=== PATIENT | male | born 1965 | race Two or more races ===

== ENCOUNTER 2024-10-07 14:40 | Emergency (ER) | payer MEDICAID, SELFPAY ==
[2024-10-07 14:45] VITALS: BMI 53.1
--- NOTE | 2024-10-07 14:56 | PC.CC ---
[facility] responded to code blue. It was reported by Heidy Adkins that patient was found down by [employer] and were unsure how long the patient had been down for. ASW informed security that if family presented themselves to notify ASW.
--- NOTE | 2024-10-07 15:02 | EDNOTE_ITS ---
ED CPR RME/HPI General Chief Complaint: Cardiac Arrest/CPR Stated Complaint: CODE Time Seen by Provider: 10/07/24 14:49 Arrival date/time: 10/07/24 14:40 RME / HPI RME / HPI narrative: This section includes all my notes and documentations, including HPI, PE, and ED course.? Winston Camarena MD HPI: Initial report received from EMS. 59 year old male presents to the ED BIBA from home as a code blue. Per medics report, patient was found down outside by a bulk delivery driver who initiated CPR. Time down is unknown. On their arrival patient was in ventricular tachycardia and 1 shock was administered. Patient was given a total of 7 epinephrine en route to ED, last administered 2 minutes prior to arrival. Prehospital BS 42 and given 250cc of D10, repeat BS 82. 1310 (after patient ): I spoke with patients and daughter. reports patient woke up, ate breakfast this morning and appeared okay. However, does reports patient had complained of feeling globally weak yesterday with low blood pressure levels. Daughter states the patient went outside and apparently he drove home. But collapsed after getting out of the car before getting inside. garbage truck driver knocked on her door to let her know what happened. He initiated CPR and EMS was called. ROS: Unable to obtain from the patient due to current clinical condition. Physical Exam: General:?Patient arrived with no signs of life, in cardiac-respiratory arrest with CPR in progress, bagged through i-gel via bag valve mask Eyes: Pupils fixed and dilated. ENT:? No signs of trauma. Heart:?No cardiac activity. Lungs:? No spontaneous respiration. Abdomen:? Soft.?? Skin:? Cool and cyanotic. Neuro: GCS is 3. ACLS protocol followed, including 2-minute chest compressions. At 3 PM, made decision to abort our resuscitation efforts with no objections from the staff. Patient at 3 PM, rest in peace Mr. Arizmendi. Winston Camarena MD ED Exam Narrative Physical exam: As noted in HPI Course Quality Measures none Orders Category Date Time Status Intubation NOW Care 10/07/24 15:05 Completed Procedures -ED Intubation Time out performed: Yes (Intubation performed emergently ) sedative: none Laryngoscope: Nickolas Assist Device Used: other (GlideScope) ET Tube Size: 8 ET Tube Uncuffed: Yes Tube Secured Depth (cm): 23 Tube Secured Location: lips Tube Placement Confirmation: visualized tube passing through cords, equal breath sounds bilaterally, no breath sounds over epigastrium and confirmation by capnometry Patient Tolerated Procedure: no complications Intubation Complications: none Cardiac Arrest / CPR MDM Narrative MDM Narrative:: Carlene Parekh am scribing for and in the presence of Dr. Camarena. Patient data External records reviewed:: EMS form Clinical information provided by:: EMS and family Social determinants that could affect healthcare access:: none Patient has the following chronic illnesses:: Prostate cancer How is presenting disease/condition affected by chronic disease/condition?: exacerbated by Evaluation data The following diagnostics were reviewed and interpreted by me:: other (specify) (No diagnostic testing performed ) Lab and/or radiology exams considered but not ordered:: None Interpretation Summary: No diagnostic testing performed. Medications / Prescriptions Medications or Prescriptions considered but not ordered:: None Medication administrations:: Patient given Epinephrine, sodium bicarbonate, Calcium Consultations Consultation(s) initiated? (list below): No Diagnosis Cardiac arrest differential diagnosis: acute massive pulmonary embolism, acute respiratory failure, acute myocardial infarction, cardiac arrest and sudden cardiac Most likely diagnosis given after review of the tests above:: Cardiac arrest Admission Indicated Admission indicated?: not indicated Explain why admission is indicated or not indicated:: Patient Admission Request Was there a request for admission?: No Disposition Plan Disposition Plan: other (specify) ( ) Discharge Plan Plan Patient Disposition: Problem List Clinical Impression: Cardiac arrest Patient/Caregiver Discharge Instructions Print Language: Icelandic
--- NOTE | 2024-10-07 15:16 | ESOP_ITS ---
Procedures Procedure Date / Time 10/07/24 1500 Procedure Narrative Procedure Narrative: Attending attestation: I was present for entire procedure. No immediate complications. Patient tolerated procedure well with minimal blood loss. Central Line Placement Right Femoral: Indication(s): shock Informed consent obtained: procedure done urgently Time out done, and the following verified: correct patient, side and site, procedure and patient position Patient placed on monitor/pulse ox: Yes Hand Hygiene: alcohol-based hand rub Max Sterile Barrier Techniques used: mask Central line prep: Chlorhexidine scrub Local anesthesia used: other anesthetic (none) Ultrasound used for placement: No Sterile Technique if Ultrasound used, including sterile gel: n/a Central line lumen inserted: triple Post procedure: good blood return, all ports aspirated, flushed, capped and sterile dressing applied Post procedure x-ray: other (none) Patient tolerated procedure: well and no complications EBL(ml): 10 Complications: none Procedure comment: Procedure was performed urgently during code blue. Procedure performed under supervision of senior operations analyst Dr. Harris. Alejo Arenas MD, PGY 2. Disclaimer: This note was dictated by speech recognition. Minor errors in tuna purse seiner may be present due to voice recognition software.
--- NOTE | 2024-10-07 15:26 | PC.CC ---
Patient's daughter, Sushila and Justa Bowser presented themselves to the hospital. ASW provided emotional support. They report that the patient has had multiple medical issues and were unsure how long he had been down for prior to the [employer] Agent finding him. They report they would like to use [facility] in [place], [place]. ASW provided this information to VEGA Anton. ASW to remain available for further needs.
--- NOTE | 2024-10-07 15:42 | PC.NURSE ---
SPOKE WITH WORKER FROM [facility]. ETA 1.5 HOUR
== END 2024-10-07 17:25 | disposition expired ==
PROVIDERS: Emergency Provider Emergency Medicine
DX: I46.9 Cardiac arrest, cause unspecified (principal)
CPT/HCPCS: 31500; 36556; 92950; 99285; C1751; J0171